=== PATIENT | female | born 1970 | race Caucasian/White ===

== ENCOUNTER → 2019-07-15 08:50 | Outpatient (CLI) | payer OTHER, SELFPAY ==
[2019-07-17 11:08] LABS: COVID19 Sendout Not Detected (Not Detected)
== END ==
PROVIDERS: Visit Provider Physician Assistant
DX: Z01.818 Encounter for other preprocedural examination (principal)
CPT/HCPCS: 87635

== ENCOUNTER 2019-07-18 08:54 | Day surgery (SDC) | payer OTHER, SELFPAY ==
[2019-07-15 14:36] VITALS: BMI 39.6
[2019-07-18] VITALS (19 sets, daily range): BP systolic 114–171; BP diastolic 58–96; PULSE 79–993; RESP 10–19; TEMP 35.8–36.7; O2SAT 92–98; BMI 39.6
[2019-07-18] MEDS: LACTATED RINGERS 1,000 ML 42 ML IV ×2 (09:32→11:31)
--- NOTE | 2019-07-18 09:56 | PM.PREOP ---
Pre-operative Note COVID-19 COVID-19 status: Negative Result date/Date tested (Pos, Neg/Pending): 07/15/19 Interval Note History & Physical reviewed/Exam performed by Physician: Yes Changes to H&P: No
[2019-07-18] MEDS: CEFAZOLIN 2 GM/100 ML FROZ.PIGGY IV (10:40)
--- NOTE | 2019-07-18 11:05 | SUR.OPER ---
Lithotomy on padded OR bed, head on pillow, arms secured on padded arm boards at <90 degrees abduction. Legs secured in padded yellow fins stirrups.
[2019-07-18] MEDS: SODIUM CHLORIDE 0.9% 50 ML INJ (11:15)
[2019-07-18] MEDS: BUPIVACAINE 0.5% W/ EPI (PF) 10 ML VIAL 30 ML INJ (11:18)
--- NOTE | 2019-07-18 11:58 | P.OP_ITS ---
Operative Date/Time/Diagnoses Date of procedure: 07/18/19 Time of procedure: 11:58 Pre-op diagnosis: symptomatic cystocele and rectocele post hysterectomy Post-op diagnosis: same Procedure & Clinicians Procedure: anterior and posterior repair with perineoplasty Same procedure as scheduled: Yes Indications: symptomatic cystocele and rectocele post hysterectomy without stress urinary incontinence Surgeon: Lisa Cope Hollow Core Door Frame Assembler: Rogelio Guerrero Click Yes if Unassisted: No Anesthesia Type: General Operative Notes Findings: first-degree cystocele with third-degree rectocele, gaping introitus, post hysterectomy, vaginal cuff well supported, urethra well supported Closure Type: primary Specimen(s): none sent Applied: catheter and other ( vaginal packing) Estimated Blood Loss (mL): 80 Blood products transfused: none Procedure in detail: Patient was brought to the operating room where she underwent general anesthesia. She was placed in low Yellofin stirrups and prepped and draped in the usual sterile fashion. Warming was in place. 2 g of Ancef were in prior to beginning of the case. Pulsatile stockings were in place and functional. A check system was reviewed with the staff in the room prior to beginning the case. A Gustafson catheter was placed. The area of the cystocele and the rectocele was injected with a dilute solution of Marcaine with epinephrine. Incision was made over the cystocele with a scalpel. Dissection was undertaken laterally with sharp and blunt dissection. The cystocele caliber was decreased with a pursestring suture of 2 0 Vicryl. Plicating sutures of 0 Vicryl suture were placed followed by a layer of 2 0 Vicryl plicating sutures. The vaginal incision was repaired with running 2 0 Vicryl suture. Next a wedge-shaped section of tissue was taken out of the posterior fourchette with a scalpel. An incision was made over the rectocele with a scalpel. Dissection was undertaken laterally. The rectocele caliber was decreased with pursestring suture of 2 0 Vicryl. Plication sutures with 0 Vicryl were placed followed by a layer of 2 0 Vicryl plicating sutures. The incision was closed with 2 0 Vicryl suture building up the perineal body. Vaginal packing was placed. Patient went to recovery room in good condition. Complications: none Post-operative Condition: stable Disposition: Acute Care Plan for aftercare: Vaginal packing and Gustafson catheter will be removed in the a.m. Home after bladder trial
[2019-07-18] MEDS: fentaNYL 100 MCG/2 ML INJ IV ×2 (12:25→12:44)
[2019-07-18] MEDS: KETOROLAC 30 MG/ML VIAL IV ×3 (12:46→22:45)
[2019-07-18] MEDS: OXYCODONE/ACETAMINOPHEN 5/325 TABLET 1 TAB PO (13:07)
--- NOTE | 2019-07-18 13:23 | SUR.PHASEI ---
c/o nose itching, states that she knows what an allergy itch feels like and this is not it. States that pain is improved and tolerable, tolerating PO well.
--- NOTE | 2019-07-18 13:38 | SUR.PHASEI ---
1327 to room 207, bed down and locked, call light and phone within reach. Placed on O2 at 2LNP so that she can doze and maintain RA sat (would dip to 90% in PACU and recover when encouraged to deep breath. Clothing bag to the room. SCDs on. awake/drowsy/oriented. pain 04/18. Dr Cope in the room, talking with the patient.
[2019-07-18] MEDS: LACTATED RINGERS 1,000 ML 100 ML IV (14:08)
[2019-07-18] MEDS: diphenhydrAMINE 25 MG TABLET PO (14:11)
--- NOTE | 2019-07-18 15:08 | PC.NURSE ---
Post-op: Late entry Arrived to room 207 at 1330. Drowsy but awake, oriented X3. Quarter sized spot dried pink drainage on kalpesh-pad. No other s/sx bleeding noted. Reports burning vaginal pain, rates it 3/10 and states she's feeling pretty good right now as far as pain goes. Gustafson to gravity, urine clear yellow. Lungs CTA, HRR to auscultation. Left on 2L O2 for now since she's dozing. Tele unit placed per order, ICU notified so they can begin monitoring. IVF per orders, site in L wrist WNL. Oriented to room and call light and encouraged to make needs known. Call light and belongings within reach. Bed alarm on, at least for immediate post-op period. Diet order changed to reflect allergy to shellfish and all other fish. Latex allergy sign placed on door.
[2019-07-18] MEDS: DOCUSATE 250 MG CAPSULE PO (20:25)
[2019-07-18] MEDS: ACETAMINOPHEN 325 MG TABLET 650 MG PO (20:26)
[2019-07-19] MEDS: OXYCODONE/ACETAMINOPHEN 5/325 TABLET 2 TAB PO ×2 (03:00→09:30)
--- NOTE | 2019-07-19 03:31 | PC.NURSE ---
Patient seen and assessed at 2336. Is alert and oriented. Breath sounds CTA and sat is 97% on oxygen at 2L/min per NC. Since assessment have been able to titrate patient off oxygen and sats remaining in mid 90's. HRR with telemetry reading of SR. Denies nausea. BT present and is passing flatus. Indwelling catheter is patent; urine is clear yellow. Is having some scant, light, serosanguinous vaginal drainage. Is able to turn self in bed. Up around 0300 and ambulated in sewell with SBA. At that time complained of 6/10 perineal pain and was medicated with Percocet. Currently states pain is not any better and is feeling a lot of pressure. Too early for Toradol so provided ice pack and will reassess and give Toradol at 0400 if not improved. Wearing bilateral calf SCD's. Fall risk score is moderate; bed alarm is activated. Significant other rooming in.
[2019-07-19] MEDS: KETOROLAC 30 MG/ML VIAL IV (04:02)
[2019-07-19] MEDS: SODIUM CHLORIDE 0.9% FLUSH 10 ML IV ×2 (04:03→09:30)
[2019-07-19 04:20] VITALS: BP 104/54; PULSE 88; RESP 16; TEMP 36.5; O2SAT 96
--- NOTE | 2019-07-19 07:46 | PM.DS.1 ---
History of Present Illness History of Present Illness Date Patient Seen: 07/19/19 Time Patient Seen: 07:46 Chief complaint: 55114 ANTERIOR POSTERIOR COLPORRAPHY *OPB* Narrative: Patient underwent an anterior and posterior repair with perineoplasty on 07/18/2019 Discharge Providers Provider Discharge Date: 07/19/19 Primary care physician: Darrian Rodriguez DO Discharge provider: Lias Cope MD Summary Hospital Course Discharge Diagnosis: Symptomatic cystocele and rectocele Hospital Course: Patient underwent a anterior and posterior repair with perineoplasty on 07/18/2019. She is ambulatory and passing gas. Her Gustafson catheter and vaginal packing removed. She will be discharged home after she passes a bladder trial. Status at Discharge Cognitive/behavioral status at discharge: oriented Functional status at discharge: independent ambulation Overall status at discharge: patient is progressing back to baseline Time Spent with Patient Time spent: Less than 30 minutes Exam Vital Signs (past 8 hours): - 07/18/19 23:56 07/19/19 04:20 Temperature 97.4 F L 97.7 F Pulse Rate 84 88 Respiratory Rate 16 16 Blood Pressure 114/58 L 104/54 L Pulse Oximetry 97 96 Oxygen Delivery Method Nasal Cannula Oxygen Flow Rate 0 Narrative Exam Narrative: Abdomen is soft, nontender. Extremities without edema and nontender. Vaginal packing was removed and had minimal blood on it. Gustafson catheter was removed. Discharge Plan Discharge Plan Patient Disposition: Home Discharge Med Rec/Prescriptions Prescriptions: New oxycodone-acetaminophen 5-325 mg Tablet 2 tab PO Q4HR PRN (Reason: Pain, Severe (7-10)) Qty: 20 RF: 0 Continued acetaminophen [Tylenol Extra Strength] 500 MG tablet 1,000 mg PO PRN PRN (Reason: Pain) Qty: 0 RF: 0 ALBUTEROL (PROVENTIL INHALER) 0.09 mg IH Q3HP Qty: 1 RF: 1 [place]a 60 mg tablet 60 mg PO DAILY RF: 0 polyethylene glycol 3350 [Miralax] 17 gram/dose powder 17 gram PO DAILY RF: 0 cyclobenzaprine 10 mg tablet 5 mg PO TID PRN (Reason: Muscle Spasm) RF: 0 ibuprofen 600 MG tablet 600 mg PO PRN PRN (Reason: Pain) Qty: 30 RF: 0 Follow up/Referrals: Lisa Cope MD [Physician] - 2 Weeks Discharge Orders: Discharge (Order); Ordered 07/19/19 Ordered By: Lisa Cope Provider Discharge Instructions Diet: Regular Activity: nothing in vagina and do not lift over 20# for 6 weeks Skin/Wound/Dressing Care Report to your healthcare provider any signs of infection, such as:: chills, fever Discharge Data Primary Care Provider: Darrian Rodriguez Attending Provider: Lisa Cope
[2019-07-19 08:00] VITALS: BP 139/75; PULSE 82; RESP 18; TEMP 36.6; O2SAT 98
[2019-07-19] MEDS: DOCUSATE 250 MG CAPSULE PO (09:30)
--- NOTE | 2019-07-19 10:27 | PC.NURSE ---
Dicharge home: IV dc'd intact. Tele dc'd. Patient voided twice prior to leaving. Both unmeasured but patient reported feeling like it was gallons and gallons. PVR scan showed 21 ml, no post-void urgency. Scant sero-sang vaginal spotting. Burning vaginal pain 5/10, patient reports well-managed with PO Percocet. Tolerating PO's without issue. Reviewed all d/c instructions thoroughly. Scheduled f/u for August 07 (closest to 2 weeks out as they had available). Reviewed lifting restrictions, nothing in vagina until told otherwise. Reviewed s/sx with which to call MD. Patient verbalized understanding of all d/c info and stated no further questions. All belongings collected and sent with patient. Wheeled out to private vehicle by nursing staff.
== END 2019-07-19 10:32 | disposition home or self-care (01) ==
LOC: OR 08:57 → AC 08:57
PROVIDERS: PCP Family Medicine; Referring Provider Specialist; Visit Provider Specialist
PROC: (CPT 57260; principal; 2019-07-18 10:15)
DX: N81.10 Cystocele, unspecified (principal); N81.6 Rectocele; N39.3 Stress incontinence (female) (male); J45.909 Unspecified asthma, uncomplicated; K21.9 Gastro-esophageal reflux disease without esophagitis
CPT/HCPCS: 57260; J0690; J1100; J1170; J1885; J2405; J2704; J3010